=== PATIENT | female | born 1980 | race Caucasian/White ===

== ENCOUNTER → 2016-05-19 | Outpatient (CLI) | payer BC ==
[~2016-05-19] MED LIST: BUPR-79 PO; HYDR1CAP85 PO; OXYC-57 PO; PRED20TA PO
--- NOTE | 2016-05-19 17:43 | DIAGNOSTIC IMAGING REPORT ---
MRI OF THE CERVICAL SPINE WITHOUT CONTRAST CLINICAL HISTORY: Left C7 radiculopathy. Neck pain radiating into left arm. COMPARISON: MRI the cervical spine December 15, 2013. TECHNIQUE: Utilizing a 1.5 Elizabeth magnet and dedicated coil, multiplanar, multiecho imaging of the cervical spine was performed without IV contrast. FINDINGS: Alignment of the cervical spine is anatomic. Vertebral body heights are maintained. There is no marrow replacement. Cervical cord signal and caliber are normal. Visualized portions of the posterior fossa are unremarkable. There is no intracanalicular mass or fluid collection. Paravertebral soft tissues are normal. There is a tiny right paracentral disc protrusion at T2-T3. C2-C3: The central canal and neural foramen are patent. C3-C4: There is minimal disc bulge. The central canal and neural foramen are patent. C4-C5: The central canal and neural foramen are patent. C5-C6: The central canal and neural foramen are patent. C6-C7: There is minimal disc bulge with a tiny left paracentral disc protrusion. Central canal and neural foramen are patent. C7-T1: Central canal and neural foramen are patent. IMPRESSION: 1. Minimal degenerative disc disease of the cervical spine. Patent central canal and neural foramen. Tiny left paracentral disc protrusion at C6-C7. No central canal stenosis. 2. Normal cervical cord signal and caliber. 3. No significant change in appearance of the cervical spine. Electronically signed by: Kong Gambino M.D. 05/19/2016 5:42 PM Dictated Date/Time: 05/19/2016 5:20 PM
== END | disposition home or self-care (01) ==
LOC: C.MRI 16:37
PROVIDERS: ATTEND Physical Medicine & Rehabilitation
DX: M50.33 Other cervical disc degeneration, cervicothoracic region (principal); M54.12 Radiculopathy, cervical region

== ENCOUNTER 2017-06-18 10:42 | Day surgery (SDC) | payer BC ==
[2017-06-08 11:35] VITALS: BMI 26.0
--- NOTE | 2017-06-08 12:27 | PAT Medication Instructions ---
Service Date Jun 08, 2017. Current Home Medication List Clindamycin Phosphate (Topical (Clindamycin Phosphate), 1 APPLN TOP QAM Clobetasol Propionate (Clobetasol Propionate), 1 APPLN TOP BID PRN for skin irritation Doxycycline Hyclate (Doxycycline Hyclate), 1 TAB PO BID Escitalopram Oxalate (Lexapro), 20 MG PO QPM Fluticasone Propionate (Nasal) (Flonase Allergy Relief), 2 SPRAYS NA DAILY PRN for Nasal Congestion Hydroxyzine Pamoate (Vistaril), 25-50 MG PO HS PRN for Sleep Tretinoin (Tretinoin), 1 APPLN TOP HS Medication Instructions For Your Scheduled Surgery - Hold the following medications 24 hours prior to surgery: Tretinoin (Tretinoin), 1 APPLN TOP HS Clindamycin Phosphate (Topical (Clindamycin Phosphate), 1 APPLN TOP QAM Clobetasol Propionate (Clobetasol Propionate), 1 APPLN TOP BID PRN for skin irritation - Take the following medications the morning of surgery with a sip of water: Doxycycline Hyclate (Doxycycline Hyclate), 1 TAB PO BID Fluticasone Propionate (Nasal) (Flonase Allergy Relief), 2 SPRAYS NA DAILY PRN for Nasal Congestion (if needed) - Take the following medications as scheduled the night before surgery: Hydroxyzine Pamoate (Vistaril), 25-50 MG PO HS PRN for Sleep (if needed) Doxycycline Hyclate (Doxycycline Hyclate), 1 TAB PO BID Escitalopram Oxalate (Lexapro), 20 MG PO QPM Fluticasone Propionate (Nasal) (Flonase Allergy Relief), 2 SPRAYS NA DAILY PRN for Nasal Congestion (if needed) If you have any questions please call us at [phone] or [phone] or [phone]
[2017-06-08 14:33] LABS: BASO % 0.9 %; BASO ABS # 0.06 K/uL (0-0.2); EOS ABS # 0.13 K/uL (0-0.5); HEMATOCRIT 40.5 % (37-47); HEMOGLOBIN 13.5 g/dL (12.0-16.0); IG# 0.01 K/uL (0.00-0.02); LYMPH % 22.6 %; LYMPH ABS # 1.44 K/uL (1.2-3.4); MEAN CELL VOLUME 89.6 fL (80-100); MEAN CORPUSCULAR HEMOGLOBIN 29.9 pg (25-34); MEAN CORPUSCULAR HGB CONC 33.3 g/dl (32-36); MEAN PLATELET VOLUME 11.1 fL (7.4-10.4); MONO % 8.3 %; MONO ABS # 0.53 K/uL (0.11-0.59); NEUT ABS # 4.19 K/uL (1.4-6.5); PLATELET COUNT 213 K/uL (130-400); RED CELL DISTRIBUTION WIDTH CV 13.7 % (11.5-14.5); RED CELL DISTRIBUTION WIDTH SD 45.4 fL (36.4-46.3); WHITE BLOOD COUNT 6.36 K/uL (4.8-10.8)
[~2017-06-18] VITALS: Ht 170.2 cm; Wt 76.1 kg
[~2017-06-18 10:42] MED LIST changes: +ATROPINE SULFATE 0.1 MG/ML 5ML SYR IV PRN; -BUPR-79 PO; +CLBPO15 TOP; +CLIN1LOT5 TOP; +DOXY1TAB6 PO; +ESCI1TAB10 PO; +EpHEDrine SULFATE INJ 50 MG/ML AMP IV PRN; +FLUT0.15; +LACTATED RINGER'S 1000ML 1,000 ML IV SCH; +ONDANSETRON INJ 2 MG/ML 2 ML VIAL IV PRN; -OXYC-57 PO; -PRED20TA PO; +PROMETHAZINE HCL INJ 12.5 MG in SODIUM CHLORIDE 0.9% 50ML 50 ML IV PRN; +TRET0.027 TOP
[2017-06-18] MEDS ORDERED: MONT1TAB3 PO (11:03)
--- NOTE | 2017-06-18 11:09 | History & Physical Bridge Note ---
H&P Re-Evaluation Bridge Note: I have examined the patient, reviewed the History & Physical and in the interval since the performance of the History & Physical I have noted the following changes of clinical significance: No changes noted
[2017-06-18 11:11] VITALS: BP 122/84; PULSE 61; TEMP 37.1; O2SAT 98; Ht 170.2 cm; Wt 76.1 kg
[2017-06-18] MEDS ORDERED: FENTANYL CITRATE INJ 50 MCG/1 ML 2 ML VIAL ONE (11:12)
[2017-06-18] MEDS ORDERED: MIDAZOLAM HCL 1 MG/ML 2ML VIAL ONE (11:12)
[2017-06-18] MEDS ORDERED: SILVER NITR/POTASSIUM NITRATE APPLICATOR ONE (12:42)
[2017-06-18] MEDS ORDERED: KETOROLAC TROMETHAMINE 30 MG/ML VIAL ONE (12:47)
[2017-06-18] MEDS ORDERED: PROPOFOL IV EMULSION 10 MG/ML 20 ML VIAL IV ONE (12:47)
[2017-06-18] MEDS ORDERED: DEXAMETHASONE SOD INJ 4 MG/ML VIAL ONE (12:47)
[2017-06-18] MEDS ORDERED: ONDANSETRON INJ 2 MG/ML 2 ML VIAL ONE (12:47)
[2017-06-18] MEDS ORDERED: LIDOCAINE HCL 2% 2 ML VIAL (20MG/ML) ONE (12:47)
[2017-06-18] MEDS: FENTANYL CITRATE INJ 50 MCG/1 ML 2 ML VIAL IV PRN ×4 (13:00→13:15)
[2017-06-18] MEDS ORDERED: SODIUM CHLORIDE 0.9% 1000ML 1,000 ML IV SCH (13:05)
--- NOTE | 2017-06-18 13:05 | [facility] Post Operative Brief Note ---
Immediate Operative Summary Operative Date Jun 18, 2017. Pre-Operative Diagnosis Menorrhagia, failed ablation. Post-Operative Diagnosis Menorrhagia, failed ablation. Procedure(s) Performed Hysteroscopy, Dilation Curettage, Novasure Endometrial Ablation Surgeon Dr. Aleman Assembler Piano Surgeon(s) None Estimated Blood Loss 5 ml Findings Consistent with Post-Op Diagnosis dictated Fluids (cc crystalloids) 900 Specimens A: Endometrial curettings Drains None Anesthesia Type General Complication(s) none Disposition Disposition: Recovery Room / PACU
[2017-06-18] MEDS ORDERED: MTR600X PO (13:09)
[2017-06-18] MEDS ORDERED: OXYC-57 PO ×2 (13:09→13:52)
--- NOTE | 2017-06-18 13:11 | Discharge Instructions ---
Discharge Instructions Date of Service Jun 18, 2017. Admission Reason for Admission: Menorrhagia Discharge Discharge Diagnosis / Problem: postop Discharge Goals Goal(s): Routine recovery after surgery Activity Recommendations Activity Limitations: as noted below ACTIVITY RECOMMENDATIONS: * Avoid tampons, douching, hot tubs, pools, and intercourse until bleeding has stopped. * May shower as usual. * No strenuous activity for 24-48 hours. After 24-48 hours, you can do anything you feel like doing (driving and sports are okay). RETURN TO SCHOOL/WORK: * You may return to school or work after 24 hours unless specified by your physician. DIET: * Resume previous diet. MEDICATIONS: Resume previous medications unless instructed otherwise by your surgeon. Ibuprofen 200mg 2-3 tablets every 4-6 hours as needed --OR-- Aleve 2 tablets every 8-12 hours as needed for post-operative discomfort Medications are over the counter. Tylenol may be used if above medications are contraindicated or not preferred. Medication should be taken with food or milk. do not take on an empty stomach. SPECIAL CARE INSTRUCTIONS: * Check temperature twice daily for one week. Report any elevation over 101 degrees. * Call office if you experience increased pelvic pain or discomfort not relieved by pain medicine, if you have foul smelling vaginal discharge, if you have bleeding that is heavier than a normal menstrual flow. If you are changing a maxi pad every 1- 2 hours, this is too heavy. vaginal spotting is normal for 1-2 weeks. FOLLOW UP VISIT: Call your doctor's office for a post-operative visit. . Current Hospital Diet Patient's current hospital diet: Discharge Diet Recommended Diet: Regular Diet Procedures Procedures Performed: Hysteroscopy, Dilation Curettage, Novasure Endometrial Ablation Pending Studies Studies pending at discharge: no Medical Emergencies . Who to Call and When: Medical Emergencies: If at any time you feel your situation is an emergency, please call 911 immediately. . Non-Emergent Contact Non-Emergency issues call your: Specialist . . "Provider Documentation" section prepared by Ignacio Aleman. . VTE Core Measure Inpt VTE Proph given/why not?: Treatment not indicated
[2017-06-18] MEDS ORDERED: ONDANSETRON INJ 2 MG/ML 2 ML VIAL IV PRN (13:15)
[2017-06-18] MEDS ORDERED: METOCLOPRAMIDE HCL INJ 5 MG/ML 2 ML VIAL IV PRN (13:15)
[2017-06-18] MEDS ORDERED: IBUPROFEN 600 MG TAB PO PRN (13:15)
[2017-06-18] MEDS ORDERED: OXYCODONE/ACETAMINOPHEN 5-325 TAB PO PRN ×2 (13:15)
[2017-06-18] MEDS: HYDROmorphone INJ 1 MG/ML SYR IV PRN ×2 (13:22→13:26)
--- NOTE | 2017-06-18 13:44 | Anesthesiology Progress Note ---
Anesthesia Post Op Note Date & Time Jun 18, 2017 at 13:44 Vital Signs Pain Intensity: 2 Vital Signs Past 12 Hours Date Time Temp Pulse Resp B/P (MAP) Pulse Ox O2 Delivery O2 Flow Rate FiO2 06/18/17 13:36 135/86 06/18/17 13:35 80 15 97 06/18/17 13:35 80 15 06/18/17 13:31 140/93 06/18/17 13:30 86 15 06/18/17 13:30 86 15 97 06/18/17 13:26 148/98 06/18/17 13:25 90 14 100 06/18/17 13:25 91 14 06/18/17 13:21 150/99 06/18/17 13:20 80 16 06/18/17 13:20 79 16 100 06/18/17 13:16 146/96 06/18/17 13:15 82 15 06/18/17 13:15 82 15 100 06/18/17 13:11 146/97 06/18/17 13:10 78 16 06/18/17 13:10 78 16 100 06/18/17 13:06 146/99 06/18/17 13:05 80 23 100 06/18/17 13:05 81 23 06/18/17 13:01 169/103 06/18/17 13:00 87 19 100 06/18/17 13:00 87 19 06/18/17 12:59 155/99 06/18/17 12:55 36.1 88 18 156/101 100 Oxymask 7 06/18/17 11:11 37.1 61 18 122/84 (97) 98 Room Air Notes Mental Status: alert / awake / arousable, participated in evaluation Pt Amnestic to Procedure: Yes Nausea / Vomiting: adequately controlled Pain: adequately controlled Airway Patency, RR, SpO2: stable & adequate BP & HR: stable & adequate Hydration State: stable & adequate Anesthetic Complications: no major complications apparent
[2017-06-18 13:50] VITALS: BP 117/56; PULSE 74; TEMP 36.3; O2SAT 97
--- NOTE | 2017-06-18 14:00 | OPERATIVE REPORT ---
DATE OF OPERATION: 06/18/2017 INDICATION FOR PROCEDURE: This is a 37-year-old with menorrhagia and a failed attempted ablation 3 years ago. POSTOPERATIVE DIAGNOSES: Same. PROCEDURE: 1. Examination under anesthesia. 2. Hysteroscopy. 3. Dilation and curettage. 4. NovaSure endometrial ablation. SURGEON: Dr. Aleman. MANUFACTURING QUALITY TECHNICIAN: None. ESTIMATED BLOOD LOSS: 5 mL. URINE OUTPUT: 100 mL clear urine at end of the procedure. IV FLUIDS: 900 mL. FINDINGS: Normal female escutcheon. No lesions in the vulva, vagina or cervix. Endometrium sounded to 9. External os was 4. Endometrium showed proliferative endometrium, no masses or polyps seen in the uterine cavity. Cavity ostium was identified. Power for ablation was 99 nowak, time was 63 seconds. Fluid deficit was 250 mL. SPECIMEN: Endometrial curettings. DRAINS: None. DISPOSITION: Stable to recovery room. COMPLICATIONS: None. DESCRIPTION OF PROCEDURE: The patient was taken to the operating room where she was prepped and draped in normal sterile fashion in dorsal lithotomy position. Time out was called. Bladder was catheterized and 100 mL of clear urine was obtained. A heavy weighted speculum was placed in the vagina. Martinez retractor was used to retract the anterior part of the vagina. Single tooth tenaculum was used to grab the cervix which was dilated to a size 24. A hysteroscope was placed into the uterine cavity and findings of the cavity are as dictated above. The hysteroscope was removed and NovaSure placed in the uterine cavity after appropriate settings. Uterine cavity length as dictated above was 9, external os was 4 making the uterine cavity length to be 5. Cavity width was 3.6; all the settings were placed in the NovaSure console. Once uterine cavity integrity was confirmed, ablation was performed. Ablation 63 seconds. After the ablation, the NovaSure device was removed and hysteroscope performed again and it was evident that the ablation had been in the uterus. The tissue in the uterine cavity had been blanched after the ablation. All instruments are removed from the uterus and accounted for x2. The patient is doing well in recovery. I attest to the content of the Intraoperative Record and any orders documented therein. Any exceptions are noted below. MTDD
[2017-06-18] MEDS ORDERED: NURSING VERBAL MED ORDER ONE ×2 (14:15→14:45)
[2017-06-18 14:20] VITALS: BP 126/84; PULSE 87; TEMP 36.4; O2SAT 96
[2017-06-18] MEDS ORDERED: DiphenhydrAMINE HCL 50 MG/ML VIAL ONE (14:20)
[2017-06-18] MEDS ORDERED: DiphenhydrAMINE HCL 50 MG/ML VIAL IV ONE (14:30)
[2017-06-18 14:50] VITALS: BP 126/80; PULSE 74; TEMP 36.5; O2SAT 96
[2017-06-18] MEDS ORDERED: DiphenhydrAMINE HCL 50 MG/ML VIAL IV PRN (15:15)
== END 2017-06-18 15:20 | disposition home or self-care (01) ==
LOC: C.ACU 10:42
PROVIDERS: ATTEND Obstetrics & Gynecology
DX: N92.0 Excessive and frequent menstruation with regular cycle (principal); F32.9 Major depressive disorder, single episode, unspecified; F41.9 Anxiety disorder, unspecified; Z79.899 Other long term (current) drug therapy; Z90.89 Acquired absence of other organs; Z87.891 Personal history of nicotine dependence; Z83.3 Family history of diabetes mellitus; Z82.5 Family history of asthma and other chronic lower respiratory diseases